=== PATIENT | male | born 1995 | race Caucasian/White ===

== ENCOUNTER 2017-08-22 18:29 | Emergency (ER) | payer SELFPAY ==
[~2017-08-22] VITALS: Ht 177.8 cm; Wt 98.0 kg
[2017-08-23 01:00] VITALS: BP 126/66
== END 2017-08-23 05:11 | disposition home or self-care (01) ==
LOC: ER 18:50
DX: P83.81 Umbilical granuloma (principal); F12.10 Cannabis abuse, uncomplicated
CPT/HCPCS: 99281